=== PATIENT | female | born 1930 | race Caucasian/White ===

== ENCOUNTER 2019-12-01 08:34 | Observation (INO) ==
[2019-12-01] MEDS ORDERED: ACETAMINOPHEN 325 MG TABLET PO PRN (12:30)
[2019-12-01] MEDS ORDERED: ONDANSETRON 4 MG/2 ML VIAL IV PRN (12:30)
[2019-12-01 13:18] LABS: Calcium 8.9 MG/DL (8.5-10.1); Osmolality,Calculated 278.5 MOS/KG (273-304)
[2019-12-01 13:36] LABS: Risk Ratio 3.07; Thyroid Stimulating Hormone 3.77 uIU/ml (0.358-3.74); VLDL CHOLESTEROL 22.2 MG/DL
[2019-12-01] MEDS ORDERED: amLODIPine 5 MG TABLET PO PRN (13:36)
[2019-12-01] MEDS ORDERED: MELATONIN 3 MG TABLET PO PRN (13:36)
[2019-12-01] MEDS ORDERED: SERTRALINE 25 MG TABLET PO PRN (13:36)
[2019-12-01] MEDS ORDERED: traZODone 50 MG TABLET PO PRN (13:36)
[2019-12-01] MEDS: LORazepam 0.5 MG TABLET PO PRN (16:55)
[2019-12-01] MEDS ORDERED: QUEtiapine 25 MG TABLET PO SCH (21:00)
[2019-12-01] MEDS ORDERED: ENOXAPARIN 30 MG/0.3 ML SYRINGE SUBCUT SCH (21:00)
[2019-12-01] MEDS: GABAPENTIN 100 MG CAPSULE PO SCH (21:22)
[2019-12-01] MEDS: busPIRone 5 MG TABLET PO SCH (21:23)
[2019-12-01] MEDS: METOPROLOL TARTRATE 25 MG TABLET PO SCH (21:23)
[2019-12-02 04:33] LABS: Basophils # 0.1 10*3/uL (0.0-0.2); Basophils % 0.8 % (0.0-0.8); Eosinophils # 0.2 10*3/uL (0.0-0.87); Eosinophils % 3.5 % (0.00-10.9); Hematocrit 41.7 VOL% (35.7-47.0); Hemoglobin 13.3 GM/DL (12.0-16.0); Immature Granulocytes % 0.3 %; Immature Granulocytes Absolute 0.02 #; Lymphocytes % 32.6 % (21.3-54.2); Mean Corpuscular HGB Conc 31.9 GM/DL (32-36); Mean Corpuscular Volume 93.7 FL (87-102); Mean Platelet Volume 10.8 FL (9.6-12.0); Monocytes % 10.8 % (1.7-12.7); Platelet Count 327 T/CUMM (130-400); Red Blood Count 4.45 MC/CUMM (3.8-5.5); Red Cell Distribution Width 14.5 % (9.3-17.3); White Blood Count 6.2 T/CUMM (4-12)
[2019-12-02 04:52] LABS: Calcium 8.8 MG/DL (8.5-10.1); Osmolality,Calculated 278.4 MOS/KG (273-304)
[2019-12-02] MEDS: LORazepam 0.5 MG TABLET PO PRN (08:44)
[2019-12-02] MEDS: METOPROLOL TARTRATE 25 MG TABLET PO SCH (08:45)
[2019-12-02] MEDS: busPIRone 5 MG TABLET PO SCH (08:46)
[2019-12-02] MEDS: GABAPENTIN 100 MG CAPSULE PO SCH (08:46)
[2019-12-02] MEDS ORDERED: RIVASTIGMINE 4.6 MG/24 HR PATCH TRANSDERM SCH (09:00)
[2019-12-02] MEDS ORDERED: QUEtiapine 25 MG TABLET PO SCH (09:00)
[2019-12-02] MEDS ORDERED: lisinopriL 2.5 MG TABLET PO SCH (09:00)
[2019-12-02] MEDS ORDERED: ASPIRIN CHEW 81 MG TABLET PO SCH (09:00)
[2019-12-02] MEDS ORDERED: PANTOPRAZOLE 40 MG TABLET PO SCH (09:00)
[2019-12-02 11:51] VITALS: BP 139/65
== END 2019-12-02 13:40 ==
LOC: N.TELEN → SUATTDRO 10:03
PROVIDERS: ADMIT Internal Medicine; ATTEND Internal Medicine Cardiovascular Disease